=== PATIENT | female | born 1990 | race American Indian/Alaskan Native ===

== ENCOUNTER 2022-04-10 22:53 | Emergency (ER) | payer SELFPAY ==
[2022-04-11] MEDS ORDERED: Acetaminophen 325 MG Tab PO ONE (00:09)
== END 2022-04-11 00:35 | disposition home or self-care (01) ==
LOC: EDBD → JD.ED 22:53 → MERGE 22:53 → JD.ED 04-11 00:35
DX: S60.221A Contusion of right hand, initial encounter (principal); J45.909 Unspecified asthma, uncomplicated; E11.9 Type 2 diabetes mellitus without complications; Z88.0 Allergy status to penicillin; Z88.1 Allergy status to other antibiotic agents; Z79.899 Other long term (current) drug therapy; W22.8XXA Striking against or struck by other objects, initial encounter
CPT/HCPCS: 73130; 99283; A9270